=== PATIENT | female | born 1970 | race Caucasian/White ===

== ENCOUNTER → 2017-08-30 | Outpatient (CLI) | payer OTHER ==
[2017-08-30 10:24] VITALS: BP 140/80; PULSE 73; BMI 39.3
--- NOTE | 2017-08-30 10:54 | P.GSHP ---
History of Present Illness H&P Date: 08/30/17 Patient is a 46 year old white female with a complaint of a lump medial aspect of her left breast. No change in size. No drainage. She had one removed from her right breast about two years ago. NO other lumps in her breast. No nipple changes. No pain in her breast. patients last mammogram done 2016 this was benign. family history: 1. maternal aunt: breast cancer bilateral had bilateral mastectomy 2. maternal grandmother; cncer uncertain of type 3. maternal grandfater: bone cancer social history: smoke: 6/day alcohol: none drugs: none menarche: never had periods : three, children: three, breast fed: oldest: 8 months old; first baby at 21 hysterectomy: 37, took ovaries no cancer Past surgical history: 1. brain surgery 2. hysterectomy 3. D&C 4. neck surgery for a cyst 5. cyst on her right breast 6. reflux surgery 7.T/A medical hsitory: 1. headaches resolved at this time 2. cyst on her left breast - Constitutional Constitutional: Denies chills, Denies fever - EENT Eyes: denies blurred vision, denies pain Ears: right: decreased hearing, deny: earache, tinnitus Ears, nose, mouth and throat: Denies headache, Denies sore throat - Breasts Breasts: bilateral: as per HPI - Cardiovascular Cardiovascular: Denies chest pain, Denies shortness of breath - Respiratory Respiratory: Denies cough, Denies 7 - Gastrointestinal Gastrointestinal: Denies abdominal pain, Denies diarrhea, Denies nausea, Denies vomiting - Genitourinary (Female) Genitourinary: Denies dysuria, Denies hematuria - Musculoskeletal Musculoskeletal: Denies myalgias - Integumentary Comment: cyst medial boarder of the left breast Integumentary: Denies pruritus, Denies rash - Neurological Neurological: Denies numbness, Denies weakness - Psychiatric Psychiatric: Denies anxiety, Denies depression - Endocrine Endocrine: Denies fatigue, Denies weight change - Hematologic/Lymphatic Comment: none - Allergic/Immunologic Comment: none Past Medical History Past Medical History: Asthma, COPD, Diabetes Mellitus, GERD/Reflux, Hearing Disorder / Deafness, Hypertension, Sleep Apnea/CPAP/BIPAP Additional Past Medical History / Comment(s): migraines, "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", hiatal hernia, emphysema History of Any Multi-Drug Resistant Organisms: None Reported Past Surgical History: Adenoidectomy, Breast Surgery, Section, Hysterectomy, Tonsillectomy Additional Past Surgical History / Comment(s): CYST REMOVED FROM NECK, D &C , myringotomy, Laparoscopic Valdemar Fundoplication 07/30/14 Past Anesthesia/Blood Transfusion Reactions: No Reported Reaction Past Psychological History: No Psychological Hx Reported Smoking Status: Current every day smoker Past Alcohol Use History: None Reported Past Drug Use History: None Reported - Past Family History Mother Family Medical History: No Reported History Medications and Allergies Home Medications Medication Instructions Recorded Confirmed Type Furosemide [Lasix] 20 mg PO DAILY PRN 04/27/14 08/30/17 History metFORMIN HCL [Glucophage] 500 mg PO DAILY 04/27/14 08/30/17 History Albuterol Nebulized [Ventolin 2.5 mg INHALATION RT-Q6H PRN 07/30/14 08/30/17 History Nebulized] Atenolol [Tenormin] 25 mg PO DAILY #90 tab 08/03/14 08/30/17 Rx Albuterol Sulfate [Ventolin HFA] 2 puff INHALATION RT-Q4H PRN 12/27/15 08/30/17 History Azithromycin [Zithromax Tri-Nikita] 500 mg PO DAILY #3 tab 12/27/15 08/30/17 Rx Varenicline [Chantix] 1 mg PO BID 12/27/15 08/30/17 History Allergies Allergy/AdvReac Type Severity Reaction Status Date / Time ibuprofen [From Motrin] Allergy Swelling,ra Verified 12/29/15 20:35 Surgical - Exam Vital Signs Pulse BP Pulse Ox 73 140/80 96 08/30/17 10:16 08/30/17 10:16 08/30/17 10:16 - General obese - Eyes normal ocular movement - ENT normal pinna, normal nares - Neck no masses, trachea midline, no lymphadectomy - Respiratory normal respiratory effort, clear to auscultation - Cardiovascular Rhythm: regular Heart Sounds: normal: S1, S2 - Abdomen Abdomen: soft, non tender, no guarding, no rigid, no rebound - Integumentary probable sebacous cyst medial boarder of her left breast - Neurologic no disoriented, no combative - Musculoskeletal normal gait, normal posture - Psychiatric oriented to time, oriented to person, oriented to place, speech is normal, memory intact Assessment and Plan Assessment: Impression/plan: 1. Cystic lesion lateral border of left breast probable sebaceous cyst 2. Patient is a bilateral mammogram 3. Patient status post hysterectomy 4. Status post brain surgery for headaches headaches are resolved 5. Status post surgery for reflux Plan: 1. Bilateral mammogram 2. Excision of cyst in the operating room 3. Medical management of medical problems cc: Dr. Solis
--- NOTE | 2017-09-02 10:18 | MM ---
Reason for exam: clinical finding. Last mammogram was performed 2 years and 2 months ago. History: Family history of breast cancer in maternal aunt at age 40 and breast cancer in maternal grandmother at age 60. Took hormonal contraceptives beginning at age 20. Physical Findings: Breast exam performed by Dr. Pak. MG 3D Diag Mammo W/Cad RHONDA Bilateral CC and MLO view(s) were taken. CV view(s) were taken of the left breast. Prior study comparison: June 24, 2015, mammogram. There are scattered fibroglandular densities. There is a 1.2cm mass at the palpable BB marker medial and inferior at posterior depth on the left. No additional suspicious abnormality. These results were verbally communicated with the patient and result sheet given to the patient on 08/30/17. ASSESSMENT: Incomplete: need additional imaging evaluation, BI-RAD 0 RECOMMENDATION: Ultrasound of the left breast.
--- NOTE | 2017-09-02 10:21 | USB ---
Reason for exam: additional evaluation requested from abnormal screening. History: Family history of breast cancer in maternal aunt at age 40 and breast cancer in maternal grandmother at age 60. Took hormonal contraceptives beginning at age 20. US Breast Limited LT Left limited breast ultrasound including focal area of concern, retroareolar and axilla demonstrates a midline 1.0 x 1.2 x 1.0cm round, mixed lesion at 9 o'clock. These results were verbally communicated with the patient and result sheet given to the patient on 08/30/17. ASSESSMENT: Suspicious, BI-RAD 4 RECOMMENDATION: Surgical consultation and ultrasound core biopsy of the left breast. (ultrasound guided biopsy or surgical excision) Called Dr. Pak with mammographic findings and has patient scheduled for surgical excision on 09/24/17 at 8:30. PRELIMINARY REPORT CALLED AND FAXED TO DR. PAK ON 09/02/17.
== END | disposition home or self-care (01) ==
LOC: WWCWWP 10:13
PROVIDERS: ATTEND Surgery
DX: N63.0 Unspecified lump in unspecified breast (principal); R92.8 Other abnormal and inconclusive findings on diagnostic imaging of breast
CPT/HCPCS: 77066; 76642; G0279; 77062

== ENCOUNTER 2017-09-24 07:09 | Day surgery (SDC) | payer OTHER ==
[2017-09-17 16:14] VITALS: BMI 37.4
[~2017-09-24 07:09] MED LIST: DEXAMETHASONE SOD PHOSPHATE 10 MG/ML 1 ML VIAL IV ONE; HYDROmorphone 0.5 MG/0.5 ML SYRINGE IVP PRN; LACTATED RINGERS 1,000 ML IV SCH; LIDOCAINE 1% 20 ML VIAL (10MG/ML) FOR IV START INTRADERMA PRN; ONDANSETRON 4 MG/2 ML VIAL IVP ONE; Pre Op ABX Message 1 EACH MISC MISCELLANE ONE; SCOPOLAMINE 1.5MG/72HR PATCH TRANSDERM ONE
[2017-09-24 07:51] LABS: Glucose,Whole Blood 104 mg/dL (75-99)
[2017-09-24] MEDS ORDERED: SUCCINYLCHOLINE CHLORIDE VIAL 200 MG/10 ML VIAL IV ONE (08:40)
[2017-09-24] MEDS ORDERED: LIDOCAINE 1% INJ 10MG/ML (20 ML MDV) ONE (08:40)
[2017-09-24] MEDS ORDERED: ePHEDrine SULFATE/0.9% NACL/PF 50 MG/5 ML SYRINGE IV ONE (08:40)
[2017-09-24] MEDS ORDERED: PROPOFOL 10 MG/ML 20 ML VIAL IV ONE (08:40)
[2017-09-24] MEDS ORDERED: fentaNYL (PF) 50 MCG/ML 2 ML AMP ONE (08:40)
[2017-09-24] MEDS ORDERED: MIDAZOLAM 2 MG/2 ML VIAL ONE (08:40)
[2017-09-24] MEDS ORDERED: HEPARIN SODIUM,PORCINE 5,000 UNIT/ML 1 ML VIAL SQ ONE (08:55)
--- NOTE | 2017-09-24 08:56 | P.PN ---
Progress Note - Text Progress Note Date: 09/24/17 The lesion of concern is in the medial aspect of the left breast.
[2017-09-24] MEDS ORDERED: LIDOCAINE 1% (PF) 10MG/ML VIAL SQ ONE ×2 (09:05)
--- NOTE | 2017-09-24 09:25 | P.OP ---
Date of Procedure: 09/24/17 Preoperative Diagnosis: Cystic lesion medial aspect of left breast Postoperative Diagnosis: Same Procedure(s) Performed: Excision of cystic lesion medial aspect of left breast, superficial felt to be a sebaceous cyst Anesthesia: LUX Surgeon: Jodie Pak Estimated Blood Loss (ml): 2 IV fluids (ml): 700 Pathology: other (Cystic lesion in the medial aspect left breast felt to be most likely sebaceous cyst) Condition: stable Disposition: PACU Indications for Procedure: Increasing cystic lesion in the superficial tissue medial aspect left breast Operative Findings: Probable sebaceous cyst medial aspect of the left breast Description of Procedure: Patient was taken to the operating room and following induction of anesthesia the right and left breasts were prepped and draped in sterile fashion. One percent lidocaine was used to anesthetize the area of the lesion. An incision was made and careful dissection was performed to remove the lesion. The lesion was in the superficial tissues. Careful dissection was performed lesion was not entered. The lesion was approximately 2 cm x 0.5 cm in size. After it had been completely removed the tissue was well irrigated. The deep tissues were closed using 2-0 Vicryl suture. The skin was closed using 4-0 Monocryl. The patient tolerated the procedure in stable condition. The specimen was sent for pathology. All instrument and sponge counts were correct at the end of the case.
--- NOTE | 2017-09-24 09:26 | P.DS ---
Providers Attending physician: Jodie Pak Primary care physician: Maribell Solis Plan - Discharge Summary New Discharge Prescriptions: No Action Furosemide [Lasix] 20 mg PO DAILY PRN PRN Reason: Edema metFORMIN HCL [Glucophage] 500 mg PO DAILY Albuterol Nebulized [Ventolin Nebulized] 2.5 mg INHALATION RT-Q6H PRN PRN Reason: Shortness Of Breath Atenolol [Tenormin] 25 mg PO DAILY #90 tab Albuterol Sulfate [Ventolin HFA] 2 puff INHALATION RT-Q4H PRN PRN Reason: Shortness Of Breath Hydrocodone/Acetaminophen [Vicodin Es 7.5-300 mg Tablet] 1 tab PO Q4HR PRN PRN Reason: Pain Discharge Medication List Furosemide [Lasix] 20 mg PO DAILY PRN 04/27/14 [History] metFORMIN HCL [Glucophage] 500 mg PO DAILY 04/27/14 [History] Albuterol Nebulized [Ventolin Nebulized] 2.5 mg INHALATION RT-Q6H PRN 07/30/14 [ History] Atenolol [Tenormin] 25 mg PO DAILY #90 tab 08/03/14 [Rx] Albuterol Sulfate [Ventolin HFA] 2 puff INHALATION RT-Q4H PRN 12/27/15 [History] Hydrocodone/Acetaminophen [Vicodin Es 7.5-300 mg Tablet] 1 tab PO Q4HR PRN 09/17 [History] Follow up Appointment(s)/Referral(s): Jodie Pak MD [STAFF PHYSICIAN] - 1 Week Activity/Diet/Wound Care/Special Instructions: Do not drive today Patient may shower after 48 hours Discharge Disposition: HOME SELF-CARE
[2017-09-24 09:46] VITALS: RESP 16; TEMP 96.8
[2017-09-24 10:01] LABS: Glucose,Whole Blood 116 mg/dL (75-99)
[2017-09-24 10:51] VITALS: BP 119/82; PULSE 75
== END 2017-09-24 11:04 | disposition home or self-care (01) ==
LOC: OR 07:09
PROVIDERS: ATTEND Surgery
DX: L72.0 Epidermal cyst (principal); J44.9 Chronic obstructive pulmonary disease, unspecified; E11.9 Type 2 diabetes mellitus without complications; K21.9 Gastro-esophageal reflux disease without esophagitis; H91.90 Unspecified hearing loss, unspecified ear; I10 Essential (primary) hypertension; R60.9 Edema, unspecified; G47.33 Obstructive sleep apnea (adult) (pediatric); F17.200 Nicotine dependence, unspecified, uncomplicated; Z99.89 Dependence on other enabling machines and devices; Z79.2 Long term (current) use of antibiotics; Z79.84 Long term (current) use of oral hypoglycemic drugs; Z79.899 Other long term (current) drug therapy; Z90.710 Acquired absence of both cervix and uterus; Z88.6 Allergy status to analgesic agent
CPT/HCPCS: 93005; 88304; 84132; 19120; J2250; J0330; J1100; J2405; J2001 ×2; J3010; J2704

== ENCOUNTER → 2017-10-04 | Outpatient (CLI) | payer OTHER ==
[2017-10-04 09:44] VITALS: BP 122/81; PULSE 90; TEMP 98.5; BMI 38.2
--- NOTE | 2017-10-04 09:49 | P.PN ---
Progress Note - Text Progress Note Date: 10/04/17 Patient is a 46-year-old white female who is status post excision of a cyst between her breasts. Pathology is consistent with an epidermal inclusion cyst. The patient is doing well at this time but has had some minimal drainage from the site. The incision is mildly erythematous. Physical examination: Incision mild erythema no evidence of infection Impression/plan: 1. Status post excision of cyst between breasts consistent with an epidermal inclusion cyst 2. Follow-up in 2 weeks Cc: Dr. Solis
== END ==
LOC: WWCWWP 09:24
PROVIDERS: ATTEND Surgery
DX: Z53.9 Procedure and treatment not carried out, unspecified reason (principal)

== ENCOUNTER → 2018-09-12 | Outpatient (CLI) | payer OTHER ==
--- NOTE | 2018-09-15 11:46 | MM ---
Reason for exam: additional evaluation requested from prior study. Last mammogram was performed 1 year ago. History: Family history of breast cancer in maternal aunt at age 40 and breast cancer in maternal grandmother at age 60. Cyst aspiration of the right breast. Took hormonal contraceptives beginning at age 20. Physical Findings: Nurse did not find any significant physical abnormalities on exam. MG Diagnostic Mammo w CAD RHONDA Bilateral CC and MLO view(s) were taken. ML and spot compression MLO view(s) were taken of the right breast. Prior study comparison: August 30, 2017, bilateral MG 3d diag mammo w/cad RHONDA. June 24, 2015, mammogram. There are scattered fibroglandular densities. No suspicious abnormality on the left. Right superior breast/axillary asymmetry persists on additional spot compression view. Precautionary ultrasound will be performed of the superior right breast. These results were verbally communicated with the patient and result sheet given to the patient on 09/12/18. ASSESSMENT: Incomplete: need additional imaging evaluation, BI-RAD 0 RECOMMENDATION: Ultrasound of the right breast. (superior)
--- NOTE | 2018-09-15 11:48 | USB ---
Reason for exam: additional evaluation requested from abnormal screening. History: Family history of breast cancer in maternal aunt at age 40 and breast cancer in maternal grandmother at age 60. Cyst aspiration of the right breast. Took hormonal contraceptives beginning at age 20. US Breast Limited RT Right limited breast ultrasound including focal area of concern, retroareolar and axilla demonstrates no cystic or solid lesion seen. No sonographic correlate. No suspicious finding. These results were verbally communicated with the patient and result sheet given to the patient on 09/12/18. ASSESSMENT: Probably benign, BI-RAD 3 RECOMMENDATION: Follow-up diagnostic mammogram of the right breast in 6 months.
== END | disposition home or self-care (01) ==
LOC: RADMAMWWP 07:40
PROVIDERS: ATTEND Surgery
DX: R92.8 Other abnormal and inconclusive findings on diagnostic imaging of breast (principal)
CPT/HCPCS: 77066

== ENCOUNTER → 2019-05-07 | Outpatient (CLI) | payer OTHER ==
--- NOTE | 2019-05-08 08:46 | MM ---
Reason for exam: follow-up at short interval from prior study. Last mammogram was performed 8 months ago. History: Family history of breast cancer in maternal aunt at age 40 and breast cancer in maternal grandmother at age 60. Cyst aspiration of the right breast. Took hormonal contraceptives beginning at age 20. Physical Findings: Nurse did not find any significant physical abnormalities on exam. MG Diagnostic Mammo RT w CAD CC and MLO view(s) were taken of the right breast. Prior study comparison: September 12, 2018, bilateral MG diagnostic mammo w CAD RHONDA. August 30, 2017, bilateral MG 3d diag mammo w/cad RHONDA. There are scattered fibroglandular densities. Right superior asymmetry no longer is seen. These results were verbally communicated with the patient and result sheet given to the patient on 05/07/19. ASSESSMENT: Negative, BI-RAD 1 RECOMMENDATION: Routine screening mammogram of both breasts in 4 months. Back on schedule for August 2019.
== END | disposition home or self-care (01) ==
LOC: RADMAMWWP 15:14
PROVIDERS: ATTEND Internal Medicine
DX: R92.8 Other abnormal and inconclusive findings on diagnostic imaging of breast (principal)
CPT/HCPCS: 77065

== ENCOUNTER 2019-11-23 06:20 | Emergency (ER) | payer OTHER ==
[2019-11-23 06:27] VITALS: RESP 18
[2019-11-23] MEDS ORDERED: SODIUM CHLORIDE 0.9% 1,000 ML IV STA (06:32)
[2019-11-23] MEDS ORDERED: ONDANSETRON 4 MG/2 ML VIAL IVP STA (06:32)
[2019-11-23] MEDS ORDERED: MAG HYDROX/AL HYDROX/SIMETH 30 ML, HYOSCYAMINE ELIXIR 10 ML PO STA ×2 (06:32)
[2019-11-23] MEDS ORDERED: MORPHINE SULFATE 4 MG/ML SYRINGE IV STA (06:32)
--- NOTE | 2019-11-23 06:34 | ED ---
Abdominal Pain HPI - General Chief Complaint: Abdominal Pain Stated Complaint: abd pain Time Seen by Provider: 11/23/19 06:27 Source: patient, RN notes reviewed Mode of arrival: ambulatory Limitations: no limitations - History of Present Illness Initial Comments: This a 49-year-old female presents emergency Department chief complaint of abdominal pain. Patient started around 12:30. Patient states pain is a burning sharp type pain in her midabdomen. Patient states that she has no back pain no flank pain no chest pain or shortness of breath. She's had slight nausea no vomiting. Patient had a prior hysterectomy, section. Patient has no dysuria no hematuria diarrhea constipation. No fevers or chills. She states nothing makes the pain feel better or worse. - Related Data Home Medications Medication Instructions Recorded Confirmed metFORMIN HCL [Glucophage] 500 mg PO DAILY 04/27/14 10/04/17 Albuterol Nebulized [Ventolin 2.5 mg INHALATION RT-Q6H PRN 07/30/14 10/04/17 Nebulized] Albuterol Sulfate [Ventolin HFA] 2 puff INHALATION RT-Q4H PRN 12/27/15 10/04/17 Hydrocodone/Acetaminophen [Vicodin 1 tab PO Q4HR PRN 09/17/17 10/04/17 Es 7.5-300 mg Tablet] Ascorbic Acid [Vitamin C] 500 mg PO DAILY 10/04/17 10/04/17 Furosemide [Lasix] 10 mg PO DAILY 10/04/17 10/04/17 Previous Rx's Medication Instructions Recorded atenoloL [Tenormin] 25 mg PO DAILY #90 tab 08/03/14 Omeprazole [PriLOSEC] 40 mg PO DAILY #14 cap 11/23/19 Ondansetron Odt [Zofran Odt] 4 mg PO Q8HR PRN #10 tab 11/23/19 Sucralfate [Carafate] 1 gm PO BID #14 tab 11/23/19 Allergies Allergy/AdvReac Type Severity Reaction Status Date / Time ibuprofen [From Motrin] Allergy Swelling,ra Verified 11/23/19 06:27 Review of Systems ROS Statement: Those systems with pertinent positive or pertinent negative responses have been documented in the HPI. ROS Other: All systems not noted in ROS Statement are negative. 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" ;CYST REMOVED FROM NECK, D &C , myringotomy, Laparoscopic Valdemar Fundoplication 07/30/14; Breast biopsy R breast/ benign Past Anesthesia/Blood Transfusion Reactions: No Reported Reaction Past Psychological History: No Psychological Hx Reported Smoking Status: Current every day smoker Past Alcohol Use History: None Reported Past Drug Use History: None Reported - Past Family History Mother Family Medical History: No Reported History General Exam Limitations: no limitations General appearance: alert, in no apparent distress Head exam: Present: atraumatic, normocephalic, normal inspection Eye exam: Present: normal appearance, PERRL, EOMI. Absent: scleral icterus, conjunctival injection, periorbital swelling Respiratory exam: Present: normal lung sounds bilaterally. Absent: respiratory distress, wheezes, rales, rhonchi, stridor Cardiovascular Exam: Present: regular rate, normal rhythm, normal heart sounds. Absent: systolic murmur, diastolic murmur, rubs, gallop, clicks GI/Abdominal exam: Present: soft, tenderness (Moderate epigastric to mid abdominal tenderness), normal bowel sounds. Absent: distended, guarding, rebound, rigid Back exam: Absent: CVA tenderness (R), CVA tenderness (L) Neurological exam: Present: alert, oriented X3 Skin exam: Present: warm, dry, intact, normal color. Absent: rash Course Vital Signs 11/23/19 06:22 Temperature 98.4 F Pulse Rate 94 Respiratory 18 Rate Blood Pressure 156/92 O2 Sat by Pulse 98 Oximetry Medical Decision Making - Medical Decision Making 49-year-old female presented for abdominal pain. Patient was given GI cocktail which greatly improved her symptoms. Patient has no chest shortness breath labs are unremarkable. Patient reevaluated and upon entering room patient was sleeping in no distress. Patient will be discharged in stable condition on omeprazole. Patient we advise follow-up PCP tomorrow return for any worsening or change in symptoms. - Lab Data Result diagrams: 11/23/19 06:56 11/23/19 06:56 Lab Results 11/23/19 11/23/19 11/23/19 Range/Units 06:56 06:56 06:56 WBC 9.7 (3.8-10.6) k/uL RBC 5.15 (3.80-5.40) m/uL Hgb 14.9 (11.4-16.0) gm/dL Hct 47.2 H (34.0-46.0) % MCV 91.6 (80.0-100.0) fL MCH 28.9 (25.0-35.0) pg MCHC 31.6 (31.0-37.0) g/dL RDW 12.5 (11.5-15.5) % Plt Count 281 (150-450) k/uL Neutrophils % 80 % Lymphocytes % 16 % Monocytes % 3 % Eosinophils % 0 % Basophils % 0 % Neutrophils # 7.7 (1.3-7.7) k/uL Lymphocytes # 1.5 (1.0-4.8) k/uL Monocytes # 0.3 (0-1.0) k/uL Eosinophils # 0.0 (0-0.7) k/uL Basophils # 0.0 (0-0.2) k/uL Sodium 137 (137-145) mmol/L Potassium 4.4 (3.5-5.1) mmol/L Chloride 102 (98-107) mmol/L Carbon Dioxide 26 (22-30) mmol/L Anion Gap 9 mmol/L BUN 19 H (7-17) mg/dL Creatinine 0.52 (0.52-1.04) mg/dL Est GFR (CKD-EPI)AfAm >90 (>60 ml/min/1.73 sqM) Est GFR (CKD-EPI)NonAf >90 (>60 ml/min/1.73 sqM) Glucose 157 H (74-99) mg/dL Calcium 8.5 (8.4-10.2) mg/dL Total Bilirubin 0.5 (0.2-1.3) mg/dL AST 22 (14-36) U/L ALT 19 (4-34) U/L Alkaline Phosphatase 62 (38-126) U/L Total Protein 7.1 (6.3-8.2) g/dL Albumin 4.2 (3.5-5.0) g/dL Amylase 43 (30-110) U/L Lipase 39 (23-300) U/L Urine Color Light Yellow Urine Appearance Clear (Clear) Urine pH 8.0 (5.0-8.0) Ur Specific [place] 1.018 (1.001-1.035) Urine Protein Negative (Negative) Urine Glucose (UA) Negative (Negative) Urine Ketones Negative (Negative) Urine Blood Negative (Negative) Urine Nitrite Negative (Negative) Urine Bilirubin Negative (Negative) Urine Urobilinogen <2.0 (<2.0) mg/dL Ur Leukocyte Esterase Negative (Negative) Disposition Clinical Impression: Abdominal pain, Gastritis Disposition: HOME SELF-CARE Condition: Stable Instructions (If sedation given, give patient instructions): Abdominal Pain (ED) Additional Instructions: Please return to the Emergency Department if symptoms worsen or any other concerns. Prescriptions: Sucralfate [Carafate] 1 gm PO BID #14 tab Omeprazole [PriLOSEC] 40 mg PO DAILY #14 cap Ondansetron Odt [Zofran Odt] 4 mg PO Q8HR PRN #10 tab PRN Reason: Nausea Is patient prescribed a controlled substance at d/c from ED?: No Referrals: Maribell Solis MD [Primary Care Provider] - 1-2 days Time of Disposition: 07:54
[2019-11-23 07:15] LABS: Basophils % (A) 0 %; Eosinophils % (A) 0 %; HCT 47.2 % (34.0-46.0); HGB 14.9 gm/dL (11.4-16.0); Lymphocytes # (A) 1.5 k/uL (1.0-4.8); Lymphocytes % (A) 16 %; MCH 28.9 pg (25.0-35.0); MCHC 31.6 g/dL (31.0-37.0); MCV 91.6 fL (80.0-100.0); Mean Platelet Volume 7.8; Monocytes # (A) 0.3 k/uL (0-1.0); Monocytes % (A) 3 %; Neutrophils # (A) 7.7 k/uL (1.3-7.7); Neutrophils % (A) 80 %; Platelet Count 281 k/uL (150-450); RBC 5.15 m/uL (3.80-5.40); RDW 12.5 % (11.5-15.5); WBC 9.7 k/uL (3.8-10.6)
[2019-11-23 07:24] LABS: ALT 19 U/L (4-34); AST 22 U/L (14-36); African American GFR (CKD) >90 (>60 ml/min/1.73 sqM); Albumin 4.2 g/dL (3.5-5.0); Alkaline Phosphatase 62 U/L (38-126); Amylase 43 U/L (30-110); Anion Gap 9 mmol/L; Blood Urea Nitrogen 19 mg/dL (7-17); Calcium 8.5 mg/dL (8.4-10.2); Carbon Dioxide 26 mmol/L (22-30); Chloride 102 mmol/L (98-107); Glucose 157 mg/dL (74-99); Non-African American GFR(CKD) >90 (>60 ml/min/1.73 sqM); Potassium 4.4 mmol/L (3.5-5.1); Sodium 137 mmol/L (137-145); Total Bilirubin 0.5 mg/dL (0.2-1.3); Total Protein 7.1 g/dL (6.3-8.2)
[2019-11-23 07:49] LABS: Appearance,Urine Clear (Clear); Bilirubin,Urine Negative (Negative); Blood,Urine Negative (Negative); Color,Urine Light Yellow; Glucose,Urine (UA) Negative (Negative); Ketones,Urine Negative (Negative); Leukocyte Esterase,Urine Negative (Negative); Nitrite,Urine Negative (Negative); Protein,Urine Negative (Negative); Specific Gravity,Urine 1.018 (1.001-1.035); Urobilinogen,Urine <2.0 mg/dL (<2.0)
[2019-11-23 08:11] VITALS: BP 155/83; PULSE 93; TEMP 97.7
== END 2019-11-23 08:10 | disposition home or self-care (01) ==
LOC: EC 06:20
DX: K29.70 Gastritis, unspecified, without bleeding (principal); E11.9 Type 2 diabetes mellitus without complications; I10 Essential (primary) hypertension; J44.9 Chronic obstructive pulmonary disease, unspecified; G47.30 Sleep apnea, unspecified; F17.200 Nicotine dependence, unspecified, uncomplicated; Z79.84 Long term (current) use of oral hypoglycemic drugs; Z79.899 Other long term (current) drug therapy; Z88.6 Allergy status to analgesic agent; Z99.89 Dependence on other enabling machines and devices
CPT/HCPCS: 36415; 80053; 81003; 82150; 83690; 85025; 96361; 96374; 96375; 99284

== ENCOUNTER → 2020-01-21 | Day surgery (SDC) | payer OTHER ==
[2019-12-30 11:18] VITALS: BMI 39.7
[~2020-01-21] MED LIST changes: -DEXAMETHASONE SOD PHOSPHATE 10 MG/ML 1 ML VIAL IV ONE; -HYDROmorphone 0.5 MG/0.5 ML SYRINGE IVP PRN; +LIDOCAINE 1% (10MG/ML) FOR IV START INTRADERMA ONE; +LIDOCAINE 1% (10MG/ML) FOR IV START INTRADERMA PRN; -LIDOCAINE 1% 20 ML VIAL (10MG/ML) FOR IV START INTRADERMA PRN; +MIDAZOLAM 2 MG/2 ML VIAL ONE; -ONDANSETRON 4 MG/2 ML VIAL IVP ONE; +PROPOFOL 10 MG/ML 20 ML VIAL IV ONE; -Pre Op ABX Message 1 EACH MISC MISCELLANE ONE; -SCOPOLAMINE 1.5MG/72HR PATCH TRANSDERM ONE; +fentaNYL (PF) 50 MCG/ML 2 ML AMP ONE
[2020-01-21 08:02] VITALS: RESP 16; TEMP 967.7
[2020-01-21 08:29] LABS: Glucose,Whole Blood 102 mg/dL (75-99)
--- NOTE | 2020-01-21 08:29 | P.GSHP ---
History of Present Illness H&P Date: 01/21/20 Chief Complaint: Epigastric pain, change in bowel habits This a 49-year-old female who presents today for EGD and colonoscopy. Patient had complaints of epigastric pain. She also complaints of constipation and change in her bowel habits. 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" ;CYST REMOVED FROM NECK, D &C , myringotomy, Laparoscopic Valdemar Fundoplication 07/30/14; Breast biopsy R breast/ benign Past Anesthesia/Blood Transfusion Reactions: No Reported Reaction Smoking Status: Current every day smoker - Past Family History Mother Family Medical History: No Reported History Medications and Allergies Home Medications Medication Instructions Recorded Confirmed Type metFORMIN HCL [Glucophage] 500 mg PO DAILY 04/27/14 01/21/20 History Albuterol Nebulized [Ventolin 2.5 mg INHALATION RT-Q6H PRN 07/30/14 01/21/20 History Nebulized] atenoloL [Tenormin] 25 mg PO DAILY #90 tab 08/03/14 01/21/20 Rx Albuterol Sulfate [Ventolin HFA] 2 puff INHALATION RT-Q4H PRN 12/27/15 01/21/20 History Hydrocodone/Acetaminophen [Vicodin 1 tab PO Q4HR PRN 09/17/17 01/21/20 History Es 7.5-300 mg Tablet] Ascorbic Acid [Vitamin C] 500 mg PO DAILY 10/04/17 01/21/20 History Furosemide [Lasix] 10 mg PO DAILY 10/04/17 01/21/20 History Omeprazole [PriLOSEC] 40 mg PO DAILY #14 cap 11/23/19 01/21/20 Rx Ondansetron Odt [Zofran Odt] 4 mg PO Q8HR PRN #10 tab 11/23/19 01/21/20 Rx Sucralfate [Carafate] 1 gm PO BID #14 tab 11/23/19 01/21/20 Rx Allergies Allergy/AdvReac Type Severity Reaction Status Date / Time ibuprofen [From Motrin] Allergy Swelling,ra Verified 01/21/20 08:06 Surgical - Exam Vital Signs Temp Pulse Resp BP Pulse Ox 967.7 F H 82 16 125/71 92 L 01/21/20 07:53 01/21/20 07:53 01/21/20 07:53 01/21/20 07:53 01/21/20 07:53 - General well developed, well nourished, no distress - Eyes PERRL - ENT normal pinna - Neck no masses, no bruits - Respiratory normal expansion - Cardiovascular Rhythm: regular - Abdomen Abdomen: soft, non tender Assessment and Plan Assessment: Epigastric pain, change in bowel habits PATIENT. We'll perform EGD and colonoscopy.
--- NOTE | 2020-01-21 08:45 | P.OP ---
Date of Procedure: 01/21/20 Preoperative Diagnosis: Epigastric pain Constipation. Change in bowel habits Postoperative Diagnosis: Antral gastritis Normal colonoscopy Procedure(s) Performed: EGD Colonoscopy Anesthesia: MAC Surgeon: Bertram Steele Pathology: other (Antrum,) Condition: stable Disposition: PACU Description of Procedure: The patient's placed on the endoscopy table in the lateral position. She received IV sedation. The gastroscope placed oropharynx passed in the esophagus and stomach. Scope was then placed through the pylorus. The first and second portion of the duodenum appeared normal. Scope was then brought back the antrum and this appeared mildly inflamed. A biopsies performed. The scope was unretr oflexed and remainder of the stomach appeared normal. The GE junction was at 40 cm the distal esophagus. Normal. The proximal esophagus. Normal. Scope was withdrawn for patient. Next digital rectal exam was performed which revealed a few external hemorrhoids. The flexible colonoscope was then placed patient anus passed throughout the entire colon. The ileocecal valve was visualized. The cecum, ascending and transverse colon appeared normal. The descending and sigmoid colon appeared normal. Scope was brought back the rectum and this appeared normal. Scope withdrawn for patient.
[2020-01-21 08:51] VITALS: PULSE 73
[2020-01-21 08:58] VITALS: BP 104/71
== END ==
LOC: ORWHC2ENDO 07:44
PROVIDERS: ATTEND Surgery
DX: K29.50 Unspecified chronic gastritis without bleeding (principal); K64.4 Residual hemorrhoidal skin tags; K59.00 Constipation, unspecified; E11.9 Type 2 diabetes mellitus without complications; K21.9 Gastro-esophageal reflux disease without esophagitis; H91.90 Unspecified hearing loss, unspecified ear; I10 Essential (primary) hypertension; G47.30 Sleep apnea, unspecified; J43.9 Emphysema, unspecified; Z90.710 Acquired absence of both cervix and uterus; Z98.891 History of uterine scar from previous surgery; Z98.890 Other specified postprocedural states; F17.200 Nicotine dependence, unspecified, uncomplicated; Z79.84 Long term (current) use of oral hypoglycemic drugs; Z79.899 Other long term (current) drug therapy; Z88.6 Allergy status to analgesic agent
CPT/HCPCS: 88305; 45378; 43239; J2250; J3010; J2704

== ENCOUNTER 2020-07-25 19:37 | Emergency (ER) | payer OTHER ==
[2020-07-25 19:58] VITALS: RESP 18
--- NOTE | 2020-07-25 22:41 | US ---
EXAMINATION TYPE: US venous doppler duplex LE RT DATE OF EXAM: 07/25/2020 10:26 PM COMPARISON: US LLEV CLINICAL HISTORY: dvt. Pain x 3 days. No hx of DVT. Patient does not take blood thinners. SIDE PERFORMED: Right TECHNIQUE: The lower extremity deep venous system is examined utilizing real time linear array sonog [place] with graded compression, doppler sonography and color-flow sonography. VESSELS IMAGED: Common Femoral Vein Deep Femoral Vein Greater Saphenous Vein * Femoral Vein Popliteal Vein Small Saphenous Vein * Proximal Calf Veins (* superficial vessels) Right Leg: No evidence of DVT in veins imaged at this time from prox calf veins to CFV/GSV. IMPRESSION: No evidence of deep vein thrombosis in the right leg.
--- NOTE | 2020-07-25 23:03 | ED ---
Extremity Problem HPI - General Chief complaint: Extremity Problem,Nontraumatic Stated complaint: Lft leg pain Time Seen by Provider: 07/25/20 19:55 Source: patient Mode of arrival: wheelchair Limitations: no limitations - History of Present Illness Initial comments: Patient is a 49 year old female presents emergency room report right calf pain. Patient states that her symptoms started 3 days ago. [facility] They recommended that she come in to the emergency department for an ultrasound. She does state that she has a large family history of DVT. No personal history. No calf swelling. She denies any chest pain or shortness of breath. Patient does admit that she strained her calf getting out of bed the other day. No fevers or chills. No skin changes. Denies any knee or ankle pain. No other alleviating, precipitating or modifying factors - Related Data Home Medications Medication Instructions Recorded Confirmed metFORMIN HCL [Glucophage] 500 mg PO DAILY 04/27/14 07/25/20 Albuterol Nebulized [Ventolin 2.5 mg INHALATION RT-Q6H PRN 07/30/14 07/25/20 Nebulized] Albuterol Sulfate [Ventolin HFA] 2 puff INHALATION RT-Q4H PRN 12/27/15 07/25/20 Ferrous Sulfate [Feosol] 325 mg PO DAILY 07/25/20 07/25/20 HYDROcodone/APAP 10-325MG [[place] 1 tab PO TID PRN 07/25/20 07/25/20 10-325] Phentermine HCl [Adipex-P] 37.5 mg PO DAILY 07/25/20 07/25/20 Previous Rx's Medication Instructions Recorded atenoloL [Tenormin] 25 mg PO DAILY #90 tab 08/03/14 Allergies Allergy/AdvReac Type Severity Reaction Status Date / Time ibuprofen [From Motrin] Allergy Swelling,ra Verified 07/25/20 21:40 Review of Systems ROS Statement: Those systems with pertinent positive or pertinent negative responses have been documented in the HPI. ROS Other: All systems not noted in ROS Statement are negative. 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" ;CYST REMOVED FROM NECK, D &C , myringotomy, Laparoscopic Valdemar Fundoplication 07/30/14; Breast biopsy R breast/ benign Past Anesthesia/Blood Transfusion Reactions: No Reported Reaction Past Psychological History: No Psychological Hx Reported Smoking Status: Current every day smoker Past Alcohol Use History: None Reported Past Drug Use History: None Reported - Past Family History Mother Family Medical History: No Reported History General Exam Limitations: no limitations General appearance: alert, in no apparent distress Extremities exam: Present: full ROM, tenderness (right posterior calf), normal capillary refill, other (2+ DP and PT pulses. cap refill <3 seconds. No calf swelling. ). Absent: joint swelling Course Vital Signs 07/25/20 07/25/20 19:53 23:07 Temperature 99.1 F 98.5 F Pulse Rate 116 H 98 Respiratory 18 18 Rate Blood Pressure 118/72 120/76 O2 Sat by Pulse 95 97 Oximetry Medical Decision Making - Medical Decision Making Upon arrival the patient is placed in room 30. Thorough history and physical exam was performed. Patient offered something for pain control however refuses. Ultrasound was performed the patient's right lower extremity which fails to demonstrate a DVT. Results are discussed with the patient. Did recommend stretching the calf, warm compresses. Patient does have [place] at home to take for pain. She has a doctor's appointment on . Did recommend that she follow up for repeat evaluation. The patient have persistent symptoms she may need a another ultrasound in a week. Patient agreed to this. Was discharged home ambulatory in stable condition Disposition Clinical Impression: Right calf pain Disposition: HOME SELF-CARE Condition: Stable Instructions (If sedation given, give patient instructions): Leg Cramps (ED) Additional Instructions: Use heat to the site. Take your [place] as directed. Follow up with your PCP in 2- 4 days. Return to the ED for any new or worsening symptoms. Is patient prescribed a controlled substance at d/c from ED?: No Referrals: Maribell Solis MD [Primary Care Provider] - 1-2 days Time of Disposition: 23:03
[2020-07-25 23:18] VITALS: BP 120/76; PULSE 98; TEMP 98.5
== END 2020-07-25 23:07 | disposition home or self-care (01) ==
LOC: EC 19:37
DX: M79.661 Pain in right lower leg (principal); E11.9 Type 2 diabetes mellitus without complications; I10 Essential (primary) hypertension; J44.9 Chronic obstructive pulmonary disease, unspecified; K21.9 Gastro-esophageal reflux disease without esophagitis; H91.90 Unspecified hearing loss, unspecified ear; G47.30 Sleep apnea, unspecified; F17.200 Nicotine dependence, unspecified, uncomplicated; Z79.84 Long term (current) use of oral hypoglycemic drugs; Z82.49 Family history of ischemic heart disease and other diseases of the circulatory system; Z88.6 Allergy status to analgesic agent
CPT/HCPCS: 99283

== ENCOUNTER → 2021-08-16 | Outpatient (CLI) | payer OTHER ==
--- NOTE | 2021-08-17 14:47 | MM ---
Reason for Exam: Screening (asymptomatic). Last mammogram was performed 2 year(s) and 11 month(s) ago. Patient History: First Full-Term at age 21. Hysterectomy at age 37. Premenopausal. Hormonal Contraceptives, from age 20 until age 21. Cyst Aspiration on the Right side. Maternal grandmother had breast cancer, age 60. Maternal aunt had breast cancer, age 40. Risk Values: [place] 5 year model risk: 0.6%. NCI Lifetime model risk: 6.1%. Film Views: Bilateral CC views were taken. Bilateral MLO views were taken. Right CCNIP views were taken. Prior Study Comparison: 08/30/2017 Bilateral Diagnostic Mammogram, [facility]. 09/12/2018 Bilateral Diagnostic Mammogram, [facility]. 05/07/2019 Right Diagnostic Mammogram, [facility]. Tissue Density: There are scattered fibroglandular densities. Findings: Analyzed By CAD. There is no suspicious group of microcalcifications or new suspicious mass in either breast. Overall Assessment: Benign, BI-RAD 2 Management: Screening Mammogram of both breasts in 1 year. A clinical breast exam by your physician is recommended on an annual basis and results should be correlated with mammographic findings. Electronically signed and approved by: Marco Antonio Villar M.D. Radiologis
== END | disposition home or self-care (01) ==
LOC: RADMAMWWP 08:45
PROVIDERS: ATTEND Internal Medicine
DX: Z12.31 Encounter for screening mammogram for malignant neoplasm of breast (principal)
CPT/HCPCS: 77067

== ENCOUNTER → 2021-10-09 | Outpatient (CLI) | payer OTHER ==
[2021-10-09 15:03] VITALS: BP 137/83; PULSE 93; TEMP 98.3; BMI 40.4
--- NOTE | 2021-12-12 12:05 | P.HPBAR ---
Bariatric H&P - History & Physicial H&P Date: 10/09/21 History & Physicial: Visit/CC: panni consult Patient initial contact: Initial weight: Initial weight in pounds: Height: 5 ft 5 in Initial BMI: Last weight: Current weight: 110.223 kg Current weight in pounds: 243.00 Current BMI: 40.4 [place] body weight (based on NIH guidelines): 56.699 kg Excess body weight loss: The patient is a 51 year-old F who presents for Bariatric Assessment. Patient presents today for bariatric follow-up. Patient is morbidly obese. She is interested in surgical weight loss and panniculectomy. 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" ;CYST REMOVED FROM NECK, D &C , myringotomy, Laparoscopic Valdemar Fundoplication 07/30/14; Breast biopsy R breast/ benign Past Anesthesia/Blood Transfusion Reactions: No Reported Reaction Past Psychological History: No Psychological Hx Reported Smoking Status: Current every day smoker Past Alcohol Use History: None Reported Additional Past Alcohol Use History / Comment(s): has smoked since age 12; smokes about 5 cigs a day Past Drug Use History: None Reported - Past Family History Mother Family Medical History: No Reported History Surgical - Exam Vital Signs Temp Pulse BP 98.3 F 93 137/83 10/09/21 15:00 10/09/21 15:00 10/09/21 15:00 - General BMI 41 well developed, well nourished - Eyes PERRL - ENT normal pinna - Neck no masses - Respiratory normal expansion - Cardiovascular Rhythm: regular - Abdomen Abdomen: soft, non tender Bariatric Assessment & Plan Plan: Morbid obesity, BMI 41. Patient is a excellent understanding of sleeve gastrectomy. When over the risks and benefits procedure. I'll discuss with her the possibility of panniculectomy and went over the risks and benefits of that procedure. Patient will follow-up in one month. Bariatric Checklist Checklist: Plan: Checklist: EGD: 1. Hiatal hernia: 2. H. Pylori: HgbA1c: Vitamin D: Smoking: Unknown if ever smoked Primary care physician referral: Dr. Solis Psychiatry clearance: Cardiology clearance: Sleep study: Diet journal: VTE risk score: VTE risk level: Rehab needs at discharge:
== END | disposition home or self-care (01) ==
LOC: BARWHC3 11:34
PROVIDERS: ATTEND Surgery
DX: E66.01 Morbid (severe) obesity due to excess calories (principal); Z68.41 Body mass index [BMI] 40.0-44.9, adult
CPT/HCPCS: 99211

== ENCOUNTER 2021-11-16 06:54 | Day surgery (SDC) | payer OTHER ==
[2021-11-15 10:21] VITALS: BMI 38.2
[~2021-11-16 06:54] MED LIST changes: -LIDOCAINE 1% (10MG/ML) FOR IV START INTRADERMA ONE; -MIDAZOLAM 2 MG/2 ML VIAL ONE; -PROPOFOL 10 MG/ML 20 ML VIAL IV ONE; -fentaNYL (PF) 50 MCG/ML 2 ML AMP ONE
[2021-11-16 07:14] VITALS: TEMP 97.1
[2021-11-16 07:25] LABS: Glucose,Whole Blood 107 mg/dL (70-110)
[2021-11-16] MEDS ORDERED: LIDOCAINE 2% INJ 20 MG/ML (2 ML VIAL) ONE (07:55)
[2021-11-16] MEDS ORDERED: MIDAZOLAM 2 MG/2 ML VIAL ONE (07:55)
[2021-11-16] MEDS ORDERED: GLYCOPYRROLATE 0.2 MG/ML 2 ML VIAL ONE (07:55)
[2021-11-16] MEDS ORDERED: PROPOFOL 10 MG/ML 20 ML VIAL IV ONE (07:55)
--- NOTE | 2021-11-16 07:59 | P.GSHP ---
History of Present Illness H&P Date: 11/16/21 Chief Complaint: GERD Male who presents today for EGD. She's had issues with GERD. Past Medical History Past Medical History: Asthma, COPD, Diabetes Mellitus, GERD/Reflux, Hearing Disorder / Deafness, Hypertension, Sleep Apnea/CPAP/BIPAP Additional Past Medical History / Comment(s): Emphysema, left breast cyst, left hearing aid use. 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 Past Anesthesia/Blood Transfusion Reactions: No Reported Reaction Past Psychological History: No Psychological Hx Reported Smoking Status: Current every day smoker Past Alcohol Use History: None Reported Additional Past Alcohol Use History / Comment(s): Has smoked since age 12, about 5 cigarettes per day. Past Drug Use History: None Reported - Past Family History Mother Family Medical History: No Reported History Medications and Allergies Home Medications Medication Instructions Recorded Confirmed Type metFORMIN HCL [Glucophage] 500 mg PO HS 04/27/14 11/16/21 History Albuterol Nebulized [Ventolin 2.5 mg INHALATION Q6H PRN 07/30/14 11/16/21 History Nebulized] Albuterol Sulfate [Ventolin HFA] 2 puff INHALATION Q4H PRN 12/27/15 11/16/21 History HYDROcodone/APAP 10-325MG [[place] 1 tab PO TID PRN 07/25/20 11/16/21 History 10-325] atenoloL [Tenormin] 25 mg PO HS 11/15/21 11/16/21 History Allergies Allergy/AdvReac Type Severity Reaction Status Date / Time ibuprofen [From Motrin] Allergy Swelling,ra Verified 11/16/21 07:09 Surgical - Exam Vital Signs Temp Pulse Resp BP Pulse Ox 97.1 F L 96 18 144/81 93 L 11/16/21 07:08 11/16/21 07:08 11/16/21 07:08 11/16/21 07:08 11/16/21 07:08 - General well developed, well nourished, no distress - Eyes PERRL - ENT normal pinna - Neck no masses - Respiratory normal expansion - Cardiovascular Rhythm: regular - Abdomen Abdomen: soft, non tender Assessment and Plan Assessment: GERD. We'll perform EGD.
--- NOTE | 2021-11-16 08:04 | P.OP ---
Date of Procedure: 11/16/21 Preoperative Diagnosis: GERD Postoperative Diagnosis: Antral gastritis Procedure(s) Performed: EGD Anesthesia: MAC Surgeon: Berrtam Steele Pathology: other (Antrum) Condition: stable Disposition: PACU Description of Procedure: The patient's placed on the endoscopy table in the lateral position. She rece ived IV sedation. The gastro-/oropharynx passed in the esophagus into the stomach. Scope was placed through the pylorus. The first and second portion of the duodenum appeared normal. Scope was then brought back the antrum this. Mildly inflamed. A biopsy was performed. The scope was unretroflexed and remainder the stomach appeared normal. There is no significant hiatal hernia. The GE junction was at 40 cm per the distal esophagus appeared normal. The proximal esophagus appeared normal. Scope withdrawn for patient.
[2021-11-16 08:25] VITALS: BP 123/80; PULSE 96; RESP 16
== END 2021-11-16 09:01 | disposition home or self-care (01) ==
LOC: ORWHC2ENDO 06:54
PROVIDERS: ATTEND Surgery
DX: K29.50 Unspecified chronic gastritis without bleeding (principal); K21.9 Gastro-esophageal reflux disease without esophagitis; J44.9 Chronic obstructive pulmonary disease, unspecified; E11.9 Type 2 diabetes mellitus without complications; H91.90 Unspecified hearing loss, unspecified ear; I10 Essential (primary) hypertension; G47.33 Obstructive sleep apnea (adult) (pediatric); J43.9 Emphysema, unspecified; Z98.890 Other specified postprocedural states; Z98.891 History of uterine scar from previous surgery; Z90.710 Acquired absence of both cervix and uterus; F17.210 Nicotine dependence, cigarettes, uncomplicated; Z79.84 Long term (current) use of oral hypoglycemic drugs; Z79.899 Other long term (current) drug therapy; Z88.6 Allergy status to analgesic agent
CPT/HCPCS: 88305; 43239; J2250; J2704; J2001

== ENCOUNTER → 2021-12-25 | Outpatient (CLI) | payer OTHER ==
[2021-12-25 13:46] VITALS: BP 144/95; PULSE 94; TEMP 97.4; BMI 41.9
--- NOTE | 2021-12-25 14:54 | P.HPBAR ---
Bariatric H&P - History & Physicial H&P Date: 12/25/21 History & Physicial: Visit/CC: panni consult Patient initial contact: Initial weight: Initial weight in pounds: Height: 5 ft 5 in Initial BMI: Last weight: Current weight: 114.305 kg Current weight in pounds: 252.00 Current BMI: 41.9 [place] body weight (based on NIH guidelines): 56.699 kg Excess body weight loss: The patient is a 51 year-old F who presents for Bariatric Assessment. Patient resents today for panniculectomy consult. Patient's morbid obese. Her BMI is 42. Patient is a well-formed panniculus. She's had trouble skin irritations and rashes. At her panniculus. Past Medical History Past Medical History: Asthma, COPD, Diabetes Mellitus, GERD/Reflux, Hearing Disorder / Deafness, Hypertension, Sleep Apnea/CPAP/BIPAP Additional Past Medical History / Comment(s): Emphysema, left breast cyst, left hearing aid use. 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 Past Anesthesia/Blood Transfusion Reactions: No Reported Reaction Past Psychological History: No Psychological Hx Reported Smoking Status: Current every day smoker Past Alcohol Use History: None Reported Additional Past Alcohol Use History / Comment(s): Has smoked since age 12, about 5 cigarettes per day. Past Drug Use History: None Reported - Past Family History Mother Family Medical History: No Reported History Surgical - Exam Vital Signs Temp Pulse BP 97.4 F L 94 144/95 12/25/21 13:43 12/25/21 13:43 12/25/21 13:43 - General well developed, well nourished, no distress - Eyes PERRL - ENT normal pinna - Neck no masses - Respiratory normal expansion - Cardiovascular Rhythm: regular - Abdomen Well-formed panniculus is evidence of chronic skin irritation Abdomen: soft, non tender - Genitourinary normal external genitalia Bariatric Assessment & Plan Plan: Well-formed panniculus. Patient will attempt to obtain insurance authorization for panniculectomy. We went over the risks and benefits of surgery patient aware this is not a cosmetic procedure however procedure remove redundant skin and fat. She's also aware the risk of possible cosmetic surgery for cosmesis. After surgery. Bariatric Checklist Checklist: Plan: Checklist: EGD: 1. Hiatal hernia: 2. H. Pylori: HgbA1c: Vitamin D: Smoking: Unknown if ever smoked Primary care physician referral: Dr. Solis Psychiatry clearance: Cardiology clearance: Sleep study: Diet journal: VTE risk score: VTE risk level: Rehab needs at discharge:
== END | disposition home or self-care (01) ==
LOC: BARWHC3 13:07
PROVIDERS: ATTEND Surgery
DX: Z48.815 Encounter for surgical aftercare following surgery on the digestive system (principal)
CPT/HCPCS: 99211

== ENCOUNTER 2022-10-21 19:02 | Emergency (ER) | payer OTHER ==
--- NOTE | 2022-10-21 20:33 | XR ---
EXAMINATION TYPE: XR knee complete RT DATE OF EXAM: 10/21/2022 8:18 PM INDICATION: Patient age:Female; 51 years old; Reason for study: pain s/p fall; PHH. COMPARISON: None. TECHNIQUE: The Right knee(s) was examined in 3 projections. Frontal, lateral and oblique. FINDINGS: No acute fracture or dislocation. Incidental fabella. Mild osteoarthritic changes with me dial tibiofemoral joint space and patellofemoral joint space narrowing with marginal spurring. Diffus e subcutaneous edema. IMPRESSION: 1. No acute osseous pathology. 2. Mild osteoarthritic changes. 3. Diffuse subcutaneous edema.
--- NOTE | 2022-10-21 20:49 | ED ---
General Adult HPI - General Chief complaint: Extremity Injury, Lower Stated complaint: Fall-right knee pain Time Seen by Provider: 10/21/22 19:55 Source: patient Mode of arrival: ambulatory - History of Present Illness Initial comments: 51-year-old female presents to the ED with a chief complaint of right knee pain. Patient states 2 days ago fell down 2 steps and landed on concrete onto her hands and knees. Denies head injury at this time. Since then reports only right knee pain. Pain is intermittent in nature. Patient has been taking [place] with good relief of the pain however notes that her family wanted her to get checked out putting her to present to the ED for further evaluation. No other symptoms. - Related Data Home Medications Medication Instructions Recorded Confirmed metFORMIN HCL [Glucophage] 500 mg PO HS 04/27/14 12/25/21 Albuterol Nebulized [Ventolin 2.5 mg INHALATION Q6H PRN 07/30/14 12/25/21 Nebulized] Albuterol Sulfate [Ventolin HFA] 2 puff INHALATION Q4H PRN 12/27/15 12/25/21 HYDROcodone/APAP 10-325MG [[place] 1 tab PO TID PRN 07/25/20 12/25/21 10-325] atenoloL [Tenormin] 25 mg PO HS 11/15/21 12/25/21 Allergies Allergy/AdvReac Type Severity Reaction Status Date / Time ibuprofen [From Motrin] Allergy Swelling,ra Verified 10/21/22 19:35 sh Review of Systems ROS Statement: Those systems with pertinent positive or pertinent negative responses have been documented in the HPI. ROS Other: All systems not noted in ROS Statement are negative. Past Medical History Past Medical History: Asthma, COPD, Diabetes Mellitus, GERD/Reflux, Hearing Di sorder / Deafness, Hypertension, Sleep Apnea/CPAP/BIPAP Additional Past Medical History / Comment(s): Emphysema, left breast cyst, left hearing aid use. 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 Past Anesthesia/Blood Transfusion Reactions: No Reported Reaction Past Psychological History: No Psychological Hx Reported Smoking Status: Current every day smoker Past Alcohol Use History: None Reported Past Drug Use History: None Reported - Past Family History Mother Family Medical History: No Reported History General Exam Limitations: no limitations General appearance: alert, in no apparent distress ENT exam: Present: mucous membranes moist Respiratory exam: Present: normal lung sounds bilaterally Cardiovascular Exam: Present: regular rate, normal rhythm GI/Abdominal exam: Present: soft Extremities exam: Present: other (Right lower extremity shows full active range of motion. Strength and sensation intact. No crepitus, step-off or obvious deformity.) Neurological exam: Present: alert, oriented X3 Skin exam: Present: warm, dry Course Vital Signs 10/21/22 19:35 Temperature 97.8 F Pulse Rate 96 Respiratory 18 Rate Blood Pressure 148/87 O2 Sat by Pulse 92 L Oximetry Medical Decision Making - Medical Decision Making Was pt. sent in by a medical professional or institution (, PA, [employer], urgent care, hospital, or care home...) When possible be specific @ -No Did you speak to anyone other than the patient for history (EMS, parent, family, police, friend...)? What history was obtained from this source @ -No Did you review nursing and triage notes (agree or disagree)? Why? @ -I reviewed and agree with nursing and triage notes Were old charts reviewed (outside hosp., previous admission, EMS record, old EKG, old radiological studies, urgent care reports/EKG's, care home records)? Report findings @ -No old charts were reviewed Differential Diagnosis (chest pain, altered mental status, abdominal pain women, abdominal pain men, vaginal bleeding, weakness, fever, dyspnea, syncope, headache, dizziness, GI bleed, back pain, seizure, CVA, palpatations, mental health, musculoskeletal)? @ -Differential Musculoskeletal Muscular strain, contusion, ligament sprain, fracture, arthritis, septic arthritis, bursitis, cellulitis, muscle spasm, nerve compression, DVT, arterial occlusion, herpes zoster, electrolyte abnormality, tumor.... This is not meant to be in all inclusive list EKG interpreted by me (3pts min.). @ -None X-rays interpreted by me (1pt min.). @ -X-ray of the right knee shows no acute process. CT interpreted by me (1pt min.). @ -None done U/S interpreted by me (1pt. min.). @ -None done What testing was considered but not performed or refused? (CT, X-rays, U/S, labs)? Why? @ -None What meds were considered but not given or refused? Why? @ -None Did you discuss the management of the patient with other professionals (professionals i.e. DrHung, PA, [employer], lab, RT, psych nurse, social work lecturer, operations project manager, teacher, protection officer, case filler)? Give summary @ -No Was smoking cessation discussed for >3mins.? @ -No Was critical care preformed (if so, how long)? @ -No Were there social determinants of health that impacted care today? How? (Homelessness, low income, unemployed, alcoholism, drug addiction, transportation, low edu. Level, literacy, decrease access to med. care, half-way, rehab)? @ -No Was there de-escalation of care discussed even if they declined (Discuss DNR or withdrawal of care, Hospice)? DNR status @ -No What co-morbidities impacted this encounter? (DM, HTN, Smoking, COPD, CAD, Cancer, CVA, ARF, Chemo, Hep., AIDS, mental health diagnosis, sleep apnea, morbid obesity)? @ -None Was patient admitted / discharged? Hospital course, mention meds given and route, prescriptions, significant lab abnormalities, going to OR and other pertinent info. @ -Discharge. X-ray shows no acute process. While in the ED patient reports pain is well controlled with her home medications and does not need any medications. Patient's knee Brant wrapped. Discharged home in stable condition. Undiagnosed new problem with uncertain prognosis? @ -No Drug Therapy requiring intensive monitoring for toxicity (Heparin, Nitro, Insulin, Cardizem)? @ -No Were any procedures done? @ -No Diagnosis/symptom? @ -Right knee pain Acute, or Chronic, or Acute on Chronic? @ -Acute Uncomplicated (without systemic symptoms) or Complicated (systemic symptoms)? @ -Uncomplicated Side effects of treatment? @ -No Exacerbation, Progression, or Severe Exacerbation? @ -No Poses a threat to life or bodily function? How? (Chest pain, [place], [place], pneumonia, PE, COPD, DKA, ARF, appy, cholecystitis, CVA, Diverticulitis, Homicidal, Suicidal, threat to staff... and all critical care pts) @ -No Disposition Clinical Impression: Right knee pain Disposition: HOME SELF-CARE Condition: Good Instructions (If sedation given, give patient instructions): Knee Pain (ED) Additional Instructions: Please return to the Emergency Department if symptoms worsen or any other concerns. Is patient prescribed a controlled substance at d/c from ED?: No Referrals: Maribell Solis MD [Primary Care Provider] - 1-2 days Time of Disposition: 20:52
[2022-10-21 21:06] VITALS: BP 150/81; PULSE 92; RESP 16; TEMP 98.3
== END 2022-10-21 21:06 | disposition home or self-care (01) ==
LOC: EC 19:02
DX: M25.561 Pain in right knee (principal); E11.9 Type 2 diabetes mellitus without complications; I10 Essential (primary) hypertension; G47.30 Sleep apnea, unspecified; J43.9 Emphysema, unspecified; F17.200 Nicotine dependence, unspecified, uncomplicated; Z79.84 Long term (current) use of oral hypoglycemic drugs; Z88.6 Allergy status to analgesic agent; Z79.899 Other long term (current) drug therapy; W10.9XXA Fall (on) (from) unspecified stairs and steps, initial encounter
CPT/HCPCS: 99283; 99284

== ENCOUNTER → 2023-05-22 | Outpatient (CLI) | payer OTHER ==
--- NOTE | 2023-05-22 21:26 | BD ---
EXAMINATION TYPE: Axial Bone Density DATE OF EXAM: 05/22/2023 CLINICAL HISTORY: 52 years old Female. ICD-10 CODE: N95.1 POST MENOPAUSAL SYMPTOMS, M85.88 OTHER DIS ORDER OF DAREN Height: 62 Weight: 255 FRAX RISK QUESTIONS: pt. uses steroid inhalers daily Secondary Osteoporosis: 1. Type 1 Diabetes: yes Menopause before age 45: yes Current Tobacco Use: yes RISK FACTORS HISTORY OF: MEDICATIONS: EXAM MEASUREMENTS: Bone mineral densitometry was performed using the [employer] System. Bone mineral density as measured about the Lumbar spine is: ----- L1-L4(G/cm2): 1.099 T Score Values are as follows: ----- L1: -0.8 ----- L2: -1.0 ----- L3: -0.9 ----- L4: -0.2 ----- L1-L4: -0.7 Z Score Values are as follows: ----- L1: -1.5 ----- L2: -1.8 ----- L3: -1.6 ----- L4: -0.9 ----- L1-L4: -1.4 first dexa at [facility] Bone mineral density about the R hip (g/cm2): 0.910 Bone mineral density about the L hip (g/cm2): 0.949 T Score values are as follows: -----R Neck: -1.8 -----L Neck: -1.6 -----R Total: -0.8 -----L Total: -0.5 Z Score values are as follows: -----R Neck: -1.7 -----L Neck: -1.6 -----R Total: -1.1 -----L Total: -0.8 FRAX%s: The graph provided illustrates a 7.3% chance for a major osteoporotic fx and a 1.4% chance fo r the hips probability for fx in 10 years time. IMPRESSION: Osteopenia (T Score between -2.5 and -1). There is slightly increased risk of fracture and the patient may be considered for treatment. Re-Screen 2-5 years. NOTE: T-SCORE=SD OF THE YOUNG ADULT MEAN.
--- NOTE | 2023-05-23 19:41 | MM ---
Reason for Exam: Screening (asymptomatic). Last mammogram was performed 1 year(s) and 9 month(s) ago. Patient History: First Full-Term at age 21. Hysterectomy at age 37. Premenopausal. Hormonal Contraceptives, from age 20 until age 21. Cyst Aspiration on the Right side. Maternal grandmother had breast cancer, age 60. Maternal aunt had breast cancer, age 40. Risk Values: Kina 5 year model risk: 0.6%. NCI Lifetime model risk: 6.0%. Prior Study Comparison: 09/12/2018 Bilateral Diagnostic Mammogram, [facility]. 05/07/2019 Right Diagnostic Mammogram, [facility]. 08/16/2021 Bilateral MG screening mammo w CAD, [facility]. Tissue Density: There are scattered fibroglandular densities. Findings: Analyzed By CAD. There is no suspicious group of microcalcifications or new suspicious mass in either breast. Overall Assessment: Negative, BI-RAD 1 Management: Screening Mammogram of both breasts in 1 year. . Patient should continue monthly self-breast exams. A clinical breast exam by your physician is recommended on an annual basis. This exam should not preclude additional follow-up of suspicious palpable abnormalities. Note on Kina scores and lifetime risk: 1. A Kina score greater than 3% is considered moderate risk. If this is the case, consider specialist referral to assess eligibility for a risk reducing agent. 2. If overall lifetime risk for the development of breast cancer is 20% or higher, the patient may qualify for future screening with alternating mammogram and breast MRI. Electronically signed and approved by: Sergio Varner M.D. Radiologist
== END | disposition home or self-care (01) ==
LOC: RADMAMWWP 12:54
PROVIDERS: ATTEND Internal Medicine
DX: Z12.31 Encounter for screening mammogram for malignant neoplasm of breast (principal); N95.1 Menopausal and female climacteric states; M85.89 Other specified disorders of bone density and structure, multiple sites; Z80.3 Family history of malignant neoplasm of breast
CPT/HCPCS: 77067; 77080

== ENCOUNTER → 2023-11-20 | Outpatient (CLI) | payer OTHER ==
[~2023-11-20] MED LIST changes: -LACTATED RINGERS 1,000 ML IV SCH; -LIDOCAINE 1% (10MG/ML) FOR IV START INTRADERMA PRN; +REGADENOSON 0.4 MG/5 ML SYRINGE IV PRN
== END | disposition home or self-care (01) ==
LOC: RADNMMAIN 08:10
PROVIDERS: ATTEND Internal Medicine Interventional Cardiology
DX: Z53.9 Procedure and treatment not carried out, unspecified reason (principal)

== ENCOUNTER 2024-08-09 16:26 | Emergency (ER) | payer OTHER ==
--- NOTE | 2024-08-09 16:49 | ED ---
Extremity Problem HPI - General Chief complaint: Extremity Problem,Nontraumatic Stated complaint: R-leg swelling Time Seen by Provider: 08/09/24 16:46 Source: patient, RN notes reviewed Mode of arrival: wheelchair Limitations: no limitations - History of Present Illness Initial comments: 53-year-old female presenting for right leg swelling x 3 days. States 5 days ago she had a charley horse however denies any injury or trauma to the leg. Denies redness, drainage, or pain to the right leg. She is able to weight-bear without difficulty. She was sent from urgent care for ultrasound as to rule out a blood clot. Patient is a current tobacco smoker. Denies recent surgery or travel in the past 3 months. Denies history of blood clots. Denies blood thinners. Patient does have history of COPD on oxygen home O2, diabetes, and hypertension. - Related Data Home Medications Medication Instructions Recorded Confirmed metFORMIN HCL [Glucophage] 500 mg PO HS 04/27/14 02/21/24 Albuterol Nebulized [Ventolin 2.5 mg INHALATION Q6H PRN 07/30/14 02/21/24 Nebulized] Albuterol Sulfate [Ventolin HFA] 2 puff INHALATION Q4H PRN 12/27/15 02/21/24 HYDROcodone/APAP 10-325MG [[place] 1 tab PO TID PRN 07/25/20 02/21/24 10-325] atenoloL [Tenormin] 25 mg PO HS 11/15/21 02/21/24 Allergy Shot(Unknown Name/Dose) 1 dose INJ WE 02/21/24 Fluticasone Nasal [place] [Flonase 1 spray EA NOSTRIL TID 02/21/24 Nasal [place]] Previous Rx's Medication Instructions Recorded Apixaban [Eliquis Starter Pack 0 mg PO DIRECTED 30 Days #1 08/09/24 (for VTE)] packet Allergies Allergy/AdvReac Type Severity Reaction Status Date / Time ibuprofen [From Motrin] Allergy Swelling,ra Verified 08/09/24 16:31 Review of Systems ROS Statement: Those systems with pertinent positive or pertinent negative responses have been documented in the HPI. ROS Other: All systems not noted in ROS Statement are negative. Past Medical History Past Medical History: Asthma, COPD, Diabetes Mellitus, GERD/Reflux, Hearing Disorder / Deafness, Hypertension, Osteoarthritis (OA), Sleep Apnea/CPAP/BIPAP Additional Past Medical History / Comment(s): See Dr Benavidez's H&P. Emphysema, allergies,left hearing aid use, deaf in right ear, no CPAP use, "can't wear it", uses oxygen 3L per N/C 15/10. Steroid injection in right knee recently. 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 Past Anesthesia/Blood Transfusion Reactions: No Reported Reaction Past Psychological History: No Psychological Hx Reported Smoking Status: Current every day smoker Past Alcohol Use History: Occasional - Past Family History Mother Family Medical History: No Reported History General Exam Limitations: no limitations General appearance: alert, in no apparent distress Head exam: Present: atraumatic, normocephalic, normal inspection Right Knee exam: Present: normal inspection, full ROM, swelling. Absent: tenderness Lower Leg exam: Present: normal inspection, full ROM, swelling. Absent: tenderness, abrasion, dislocation, erythema, palpable cord, Homans' sign Ankle exam: Present: normal inspection, full ROM, swelling Foot/Toe exam: Present: normal inspection, full ROM, swelling. Absent: tenderness Neurovascular tendon exam: Present: no vascular compromise. Absent: pulse deficit, abnormal cap refill Neurological exam: Present: alert, oriented X3 Psychiatric exam: Present: normal affect, normal mood Skin exam: Present: warm, dry, intact, normal color. Absent: rash Course Vital Signs 08/09/24 08/09/24 16:27 18:13 Temperature 98.2 F Pulse Rate 99 88 Respiratory 24 19 Rate Blood Pressure 133/82 142/83 O2 Sat by Pulse 94 L 98 Oximetry Medical Decision Making - Medical Decision Making Was pt. sent in by a medical professional or institution (, PA, DIRECTOR OF THE BIOPHYSICS FACILITY, urgent care, hospital, or usp...) When possible be specific @ -Sent from urgent care for ultrasound to rule out DVT Did you speak to anyone other than the patient for history (EMS, parent, family, police, friend...)? What history was obtained from this source @ -No Did you review nursing and triage notes (agree or disagree)? Why? @ -I reviewed and agree with nursing and triage notes Were old charts reviewed (outside hosp., previous admission, EMS record, old EKG, old radiological studies, urgent care reports/EKG's, usp records)? Report findings @ -No old charts were reviewed Differential Diagnosis (chest pain, altered mental status, abdominal pain women, abdominal pain men, vaginal bleeding, weakness, fever, dyspnea, syncope, headache, dizziness, GI bleed, back pain, seizure, CVA, palpatations, mental health, musculoskeletal)? @-Differential Musculoskeletal Muscular strain, contusion, ligament sprain, fracture, arthritis, septic arthrit is, bursitis, cellulitis, muscle spasm, nerve compression, DVT, arterial occlusion, herpes zoster, electrolyte abnormality, tumor.... This is not meant to be in all inclusive list EKG interpreted by me (3pts min.). @ -None X-rays interpreted by me (1pt min.). @ -None done CT interpreted by me (1pt min.). @ -None done U/S interpreted by me (1pt. min.). @ -Ultrasound right lower extremity reveals acute DVT involving right popliteal vein What testing was considered but not performed or refused? (CT, X-rays, U/S, labs)? Why? @ -None What meds were considered but not given or refused? Why? @ -None Did you discuss the management of the patient with other professionals (professionals i.e. , PA, DIRECTOR OF THE BIOPHYSICS FACILITY, lab, RT, psych nurse, foster care social worker, biometrician, teacher, credit control officer, social work case manager)? Give summary @ -No Was smoking cessation discussed for >3mins.? @ -No Was critical care preformed (if so, how long)? @ -No Were there social determinants of health that impacted care today? How? (Homelessness, low income, unemployed, alcoholism, drug addiction, transportation, low edu. Level, literacy, decrease access to med. care, snf, rehab)? @ -No Was there de-escalation of care discussed even if they declined (Discuss DNR or withdrawal of care, Hospice)? DNR status @ -No What co-morbidities impacted this encounter? (DM, HTN, Smoking, COPD, CAD, Cancer, CVA, ARF, Chemo, Hep., AIDS, mental health diagnosis, sleep apnea, morbid obesity)? @ -None Was patient admitted / discharged? Hospital course, mention meds given and route, prescriptions, significant lab abnormalities, going to OR and other perti ne info. @ -Discharge. 53-year-old female presenting for right lower extremity swelling x 3 days. Denies injury or trauma. Denies redness or pain. Able to weight- bear. Denies blood thinners. Neurovascularly intact. No sign of bacterial infection or cellulitis on examination. Ultrasound right lower extremity reveals acute DVT involving right popliteal vein. Discussed results with patient. Admission was considered for proximal DVT, however I discussed case with my ED attending Dr. Price who recommended one-time dose of IM Lovenox and discharge with outpatient Eliquis and close PCP follow-up with strict return precautions. Strict return precautions discussed with patient. Patient states she will follow-up with her PCP Dr. Solis. Case was discussed in detail with my ED attending Dr. Price. Undiagnosed new problem with uncertain prognosis? @ -No Drug Therapy requiring intensive monitoring for toxicity (Heparin, Nitro, Insulin, Cardizem)? @ -No Were any procedures done? @ -No Diagnosis/symptom? @ -Acute DVT of right popliteal vein Acute, or Chronic, or Acute on Chronic? @ -Acute Uncomplicated (without systemic symptoms) or Complicated (systemic symptoms)? @ -Uncomplicated Side effects of treatment? @ -No Exacerbation, Progression, or Severe Exacerbation? @ -No Poses a threat to life or bodily function? How? (Chest pain, [place], [place], pneumonia, PE, COPD, DKA, ARF, appy, cholecystitis, CVA, Diverticulitis, Homicidal, Suicidal, threat to staff... and all critical care pts) @ -Unlikely at this time Disposition Clinical Impression: Deep venous thrombosis of right popliteal vein Disposition: HOME SELF-CARE Condition: Stable Instructions (If sedation given, give patient instructions): Deep Vein Thrombosis (ED) Additional Instructions: Start Eliquis tomorrow. Take 10 mg by mouth twice daily for 7 days, then 5 mg by mouth twice daily thereafter. Please follow-up with Dr. Solis within the week. Please look out for new symptoms such as chest pain or shortness of breath. Please return to the ER immediately if such symptoms occur. Please return to the Emergency Department if symptoms worsen or any other concerns. Prescriptions: Apixaban [Eliquis Starter Pack (for VTE)] 0 mg PO DIRECTED 30 Days #1 packet Is patient prescribed a controlled substance at d/c from ED?: No Referrals: Maribell Solis MD [Primary Care Provider] - 1-2 days Time of Disposition: 18:40
--- NOTE | 2024-08-09 18:10 | US ---
EXAMINATION TYPE: US venous doppler duplex LE RT DATE OF EXAM: 08/09/2024 5:45 PM COMPARISON: NONE CLINICAL INDICATION: Female, 53 years old with history of pain; Calf Pain, right foot swelling, no h/ o dvt TECHNIQUE: The lower extremity deep venous system is examined utilizing real time linear array sonog fortino with graded compression, color doppler sonography, and spectral doppler. SIDE PERFORMED: Right FINDINGS: VESSELS IMAGED: Common Femoral Vein Deep Femoral Vein Greater Saphenous Vein * Femoral Vein Popliteal Vein Small Saphenous Vein * Proximal Calf Veins (* superficial vessels) Right Leg: Internal echoes that do not compress, within dilated popliteal vein, probable thrombus. IMPRESSION: Acute deep vein thrombosis involving the right popliteal vein. [facility], , 08/09/2024 6:07 PM
[2024-08-09] MEDS: ENOXAPARIN 120 MG/0.8 ML SYRINGE SQ STA (18:50)
[2024-08-09 19:03] VITALS: BP 138/84; PULSE 89; RESP 20; TEMP 98.1
== END 2024-08-09 19:03 | disposition home or self-care (01) ==
LOC: EC 16:26
DX: I82.431 Acute embolism and thrombosis of right popliteal vein (principal); F17.200 Nicotine dependence, unspecified, uncomplicated; Z88.6 Allergy status to analgesic agent
CPT/HCPCS: 93971; 99283; J1650